=== PATIENT | female | born 1990 | race African-American/Black ===

== ENCOUNTER 2018-08-15 19:31 | Inpatient (IN) | payer OTHER ==
[2018-08-15] MEDS ORDERED: CLINDAMYCIN 900 MG PREMIX IVPB 900 MG/50 ML BAG IVPB ONE (20:30)
[2018-08-15] MEDS ORDERED: DEXTROSE 5%-LACTATED RINGERS 1,000 ML IV SCH (20:45)
--- NOTE | 2018-08-15 20:50 | HP ---
Past Medical History - Admission Chief Complaint: Uterine contractions History of Present Illness: 27yo @ 40.3wks by bedside sono BPD. Pt presented by ambulance, states [facility] at [facility]- but then on further questioning admits no care. Her REINIER she believes is either 07/21/18 or 07/31/18. She presents with one day of uterine contractions every 1-2 minutes. No VB. Denies LOF. +FM Reports history of 2 SVDs to 6# and 7# babies without complications. States these children were delivered at [facility]. History Source: Family Member Limitations to Obtaining History: Poor Historian - Past Medical History ...: 3 ...Para: 2 ...Term: 2 ...EDC by Dates: 07/21/18 ...EDC by Sono: 08/12/18 - Past Surgical History Hx Myomectomy: No Hx Transabdominal Cerclage: No - Social History History of Recent Travel: No Home Medications - Allergies Allergies/Adverse Reactions: Allergies Allergy/AdvReac Type Severity Reaction Status Date / Time Penicillins Allergy Intermediate Swelling Verified 08/15/18 20:39 amoxicillin Allergy Swelling Verified 08/15/18 20:40 Physical Exam - Maternity - Abdominal Exam/OB Number of Fetuses: Single Presentation: Vertex Contractions: Yes Regularity: Irregular Intensity: Mild Monitor Mode: External Category: II Accelerations: Uniform Decelerations: Variable - Vaginal Exam/OB Vaginal Bleediing: No Speculum Exam: No Dilatation (cm): 4 Effacement (%): 100 Presentation: Vertex/Position Station: -2 - Physical Exam Edema: No Assessment/Plan 27yo @ 40.3wks here in labor Admit to L&D NPO, IVFs Clinda for GBS unknown FHT with tachycardia and intermittent variable decels- will hydrate, reposition labs ordered, drug screen ordered Anticipate Deborah Darden MD
[2018-08-15 21:31] LABS: BASO % 0.1 % (0-2.0); EOS % 0.6 % (0-4.5); HEMATOCRIT 29.9 % (32.4-45.2); LYMPH % 16.4 % (8-40); MCH 28.5 pg (25.7-33.7); MCHC 33.5 g/dl (32.0-36.0); MEAN CELL VOLUME 85.1 fl (80-96); MEAN PLT VOLUME 7.7 fl (7.5-11.1); MONO % 6.6 % (3.8-10.2); NEUT % 76.3 % (42.8-82.8); PLATELET COUNT 364 K/MM3 (134-434); RBC 3.52 M/mm3 (3.60-5.2); RDW 15.4 % (11.6-15.6); WHITE BLOOD COUNT 5.7 K/mm3 (4.0-10.0)
[2018-08-15 21:33] LABS: URINE APPEARANCE SLCLOUDY; URINE BILIRUBIN NEGATIVE (<2.0 mg/dL); URINE COLOR YELLOW; URINE GLUCOSE (UA) NEGATIVE (NEGATIVE); URINE KETONE NEGATIVE (NEGATIVE); URINE LEUK ESTERASE TRACE (NEGATIVE); URINE NITRITE NEGATIVE (NEGATIVE); URINE PROTEIN NEGATIVE (NEGATIVE); URINE UROBILINOGEN 4.0 E.U/dl mg/dL (0.2-1.0)
[2018-08-15 21:38] LABS: EPI CELLS RARE /HPF (FEW); URINE MUCUS FEW
[2018-08-15 21:42] LABS: INR 0.91 (0.83-1.09); PROTHROMBIN TIME (PATIENT) 10.7 SEC (9.7-13.0)
--- NOTE | 2018-08-15 21:50 | PN ---
Progress Note, Labor Vaginal Exam #2 Labor Exam Date: 08/15/18 Labor Exam Time: 21:47 Heart Rate (range): Cat II Dilatation: 5-6 Effacement (%): 100 Amniotic Membrane Status: Ruptured Presentation: Vertex/Position Station: +1 Remarks: Pt complaining of rectal pressure. FHT with moderate variability and resolved tachycardia, however having intermittent variable decelerations Will reposition, continue fluids and oxygen Anticipate Deborah Darden MD
[2018-08-15 21:53] VITALS: BMI 20.3
[2018-08-15 21:56] LABS: ALBUMIN 2.4 g/dl (3.4-5.0); ALK PHOS 232 U/L (45-117); ANION GAP 8 MMOL/L (8-16); BILIRUBIN,TOTAL 0.4 mg/dL (0.2-1); BLOOD UREA NITROGEN 8 mg/dL (7-18); CALCIUM 8.1 mg/dL (8.5-10.1); CHLORIDE 107 mmol/L (98-107); CO2 23 mmol/L (21-32); COCAINE, UR NEGATIVE ng/ml (CUTOFF=300); CREATININE 0.4 mg/dL (0.55-1.3); GLUCOSE,RANDOM 77 mg/dL (74-106); METHADONE, UR NEGATIVE ng/ml (CUTOFF=300); OPIATES, URI NEGATIVE ng/ml (CUTOFF=300); PHENCYCLIDINE,URINE NEGATIVE ng/ml (CUTOFF=25); POTASSIUM 4.5 mmol/L (3.5-5.1); SGOT/AST 46 U/L (15-37); SGPT/ALT 17 U/L (13-61); SODIUM 138 mmol/L (136-145); TOT PROT 6.6 g/dl (6.4-8.2); URINE AMPHETAMINES NEGATIVE ng/ml (CUTOFF=500); URINE BARBITURATES NEGATIVE ng/ml (CUTOFF=200); URINE BENZODIAZEPINES NEGATIVE ng/ml (CUTOFF=200)
--- NOTE | 2018-08-15 23:23 | PN ---
Progress Note, Labor Vaginal Exam #2 Labor Exam Time: 23:22 Heart Rate (range): Cat II Dilatation: 6 Effacement (%): 100 Amniotic Membrane Status: Ruptured Presentation: Vertex/Position Station: +1 Remarks: Pt reporting rectal pressure Exam not much changed since previous exam FHT with intermittent variables, but moderate variability Anticipate Deborah Darden MD
[2018-08-15] MEDS ORDERED: OXYTOCIN 30 UNITS in 0.9% NS 30 UNIT/500 ML INFUS.BAG IVPB ONE (23:33)
[2018-08-15] MEDS ORDERED: OXYTOCIN 30 UNITS in 0.9% NS 30 UNIT/500 ML INFUS.BAG IVPB SCH (23:45)
[2018-08-16] MEDS ORDERED: OXYTOCIN 20 UNITS in 0.9% NS 20 UNIT/1,000 ML INFUS.BAG IV ONE (00:39)
[2018-08-16] MEDS ORDERED: METHYLERGONOVINE MALEATE 0.2 MG/1 ML AMP IM PRN (00:59)
[2018-08-16] MEDS ORDERED: BENZOCAINE 20% 57 GM BOTTLE TP PRN (00:59)
[2018-08-16] MEDS ORDERED: ACETAMINOPHEN 325 MG TABLET (FP) PO PRN (00:59)
[2018-08-16] MEDS ORDERED: BENZOCAINE 28 GM HEMORRHOIDAL OINTMENT TP PRN (00:59)
[2018-08-16] MEDS ORDERED: WITCH HAZEL 50% (TUCKS) 40 PAD/JAR PAD TP PRN (00:59)
[2018-08-16] MEDS ORDERED: IBUPROFEN 600 MG TABLET (FP) PO PRN (00:59)
--- NOTE | 2018-08-16 00:59 | PN ---
Delivery - Delivery Type of Anesthesia: None Episiotomy/Laceration: Midline, 1st degree EBL (cc): 250 Delivery, Single - Stages of Labor Placenta: Yes: Spontaneous - Condition of Infant Infant Gender: Male Position: Right, OA - [place] Feeding Plan Initial Plan: Elected not to breastfeed exclusively throughout hospitalization Remarks - Remarks Remarks: of VMI from ESTELA position over intact perineum. Uncertain gestational age. No anesthesia. Spontaneous delivery of anterior shoulder. Cord clamped and cut. handed off. Spontaneous delivery of intact placenta with 3VC. Perineum inspected, first degree midline laceration noted. Repaired after 4cc of 1% lidocaine injected, with 2-0 chromic. Fundus firm. EBL 250ml. Mother and baby doing well. Deborah Darden MD
[2018-08-16] MEDS ORDERED: OXYTOCIN 20 UNITS in 0.9% NS 20 UNIT/1,000 ML INFUS.BAG IV SCH (01:00)
[2018-08-16] MEDS: CLINDAMYCIN 600MG PREMIX IVPB 600 MG/50 ML BAG IVPB SCH ×2 (03:46→03:47)
[2018-08-16] MEDS: FERROUS SO4 325 MG TABLET (FP) PO SCH ×2 (08:25→16:56)
[2018-08-16] MEDS: PRENATAL VITAMINS W/ FOLIC ACID TABLET (FP) PO SCH (09:39)
--- NOTE | 2018-08-17 07:25 | PN ---
Post Progress Note Type of Delivery: Vital Signs: Vital Signs Temperature 97.9 F 08/16/18 21:00 Pulse Rate 93 H 08/16/18 21:00 Respiratory Rate 20 08/16/18 21:00 Blood Pressure 114/67 08/16/18 21:00 O2 Sat by Pulse Oximetry (%) Uterus: Yes: Fundus below umbilicus Incision: Yes: Dressing dry and intact. No: [place] intact, Sutures intact, Redness, Oozing, Other Abdomen/GI: Yes: Abdomen soft Lochia: Yes: Rubra Lochia, amount: Small Extremities: Yes: Calves non-tender Perineum: Yes: Intact Activity: Ambulating - Labs Labs: CBC WBC 5.7 K/mm3 (4.0-10.0) 08/15/18 20:35 RBC 3.52 M/mm3 (3.60-5.2) L 08/15/18 20:35 Hgb 10.0 GM/dL (10.7-15.3) L 08/15/18 20:35 Hct 29.9 % (32.4-45.2) L 08/15/18 20:35 MCV 85.1 fl (80-96) 08/15/18 20:35 MCH 28.5 pg (25.7-33.7) 08/15/18 20:35 MCHC 33.5 g/dl (32.0-36.0) 08/15/18 20:35 RDW 15.4 % (11.6-15.6) 08/15/18 20:35 Plt Count 364 K/MM3 (134-434) 08/15/18 20:35 MPV 7.7 fl (7.5-11.1) 08/15/18 20:35 Absolute Neuts (auto) 4.4 K/mm3 (1.5-8.0) 08/15/18 20:35 Neutrophils % 76.3 % (42.8-82.8) 08/15/18 20:35 Lymphocytes % 16.4 % (8-40) 08/15/18 20:35 Monocytes % 6.6 % (3.8-10.2) 08/15/18 20:35 Eosinophils % 0.6 % (0-4.5) 08/15/18 20:35 Basophils % 0.1 % (0-2.0) 08/15/18 20:35 Nucleated RBC % 0 % (0-0) 08/15/18 20:35 Assessment/Plan 27yo s/p , PPD#1 Routine PP care s/p SW consult given lack of PNC Labs reviewed Anticipate d/c to home tomorrow Deborah Darden MD
[2018-08-17 07:29] LABS: BASO % 0.3 % (0-2.0); HEMATOCRIT 27.4 % (32.4-45.2); HEMOGLOBIN 8.8 GM/dL (10.7-15.3); LYMPH % 27.8 % (8-40); MCH 27.7 pg (25.7-33.7); MCHC 32.1 g/dl (32.0-36.0); MEAN CELL VOLUME 86.3 fl (80-96); MEAN PLT VOLUME 7.3 fl (7.5-11.1); MONO % 6.8 % (3.8-10.2); NEUT % 64.1 % (42.8-82.8); PLATELET COUNT 291 K/MM3 (134-434); RBC 3.17 M/mm3 (3.60-5.2); RDW 15.7 % (11.6-15.6); WHITE BLOOD COUNT 6.2 K/mm3 (4.0-10.0)
[2018-08-17] MEDS: FERROUS SO4 325 MG TABLET (FP) PO SCH ×2 (08:26→16:58)
[2018-08-17] MEDS: PRENATAL VITAMINS W/ FOLIC ACID TABLET (FP) PO SCH (09:35)
[2018-08-17 13:14] LABS: HBsAG SCREEN Negative (Negative)
[2018-08-17 18:13] LABS: RUBELLA IgG ANTIBODY 1.03 index (Immune >0.99)
[2018-08-17] MEDS ORDERED: SENNOSIDES/DOCUSATE COMBO (SENNA PLUS) TABLET (UD) PO PRN (22:00)
[2018-08-18] MEDS: FERROUS SO4 325 MG TABLET (FP) PO SCH (09:04)
[2018-08-18] MEDS: PRENATAL VITAMINS W/ FOLIC ACID TABLET (FP) PO SCH (09:05)
--- NOTE | 2018-08-18 09:58 | DS ---
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 Vital Signs: Vital Signs Temperature 98.3 F 08/17/18 20:09 Pulse Rate 83 08/17/18 20:09 Respiratory Rate 20 08/17/18 20:09 Blood Pressure 114/67 08/17/18 20:09 O2 Sat by Pulse Oximetry (%) Constitutional: Yes: Well Nourished Eyes: Yes: Conjunctiva Clear HENT: Yes: Atraumatic Neck: Yes: Supple Cardiovascular: Yes: Regular Rate and Rhythm Respiratory: Yes: Regular Gastrointestinal: Yes: Normal Bowel Sounds Pelvis: Yes: WNL External Genitalia: Yes: Normal Vaginal Exam: Yes: Normal Cervix: Yes: Normal Uterus: Yes: Firm ....Post : Yes: Uterus firm, Moderate lochia serosa Breast(s): Yes: WNL Musculoskeletal: Yes: WNL Extremities: Yes: WNL Neurological: Yes: Alert, Oriented ...Motor Strength: WNL Psychiatric: Yes: Alert, Oriented Labs: CBC, BMP 08/17/18 06:30 08/15/18 20:35 Delivery - Delivery Type of Anesthesia: None Episiotomy/Laceration: Midline, 1st degree EBL (cc): 250 Delivery, Single - Stages of Labor Date 1st Stage Initiatied: 08/15/18 Time 1st Stage Initiated: 13:00 Date 2nd Stage Initiated: 08/16/18 Time 2nd Stage Initiated: 00:25 Date of Delivery: 08/16/18 Time of Delivery: 00:40 Time Placenta Delivered: 00:45 Placenta: Yes: Spontaneous - 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 5mins. - 1 Minute Total Score: 9 5 Minutes Total Score: 9 - Feeding Plan Initial Plan: Elected not to breastfeed exclusively throughout hospitalization Discharge Summary Reason For Visit: LABOR Current Active Problems Status post normal vaginal delivery (Acute) Procedures: Principal: Normal spontaneous vaginal delivery Hospital Course: Routine care Condition: Good - Instructions Referrals: Deborah Darden MD [Staff Physician] - Disposition: HOME - Home Medications Comprehensive Discharge Medication List: Ambulatory Orders NK [No Known Home Medication] 08/15/18
[2018-08-18 10:48] VITALS: BP 121/78; PULSE 76; TEMP 98.4
== END 2018-08-18 13:35 | disposition home or self-care (01) | DRG 560 ==
LOC: JLDR 19:31 → J3W 08-16 03:10
PROVIDERS: ADMIT Obstetrics & Gynecology; ATTEND Obstetrics & Gynecology
PROC: 0HQ9XZZ Repair Perineum Skin, External Approach (ICD-10-PCS; principal; 2018-08-16)
PROC: 10E0XZZ Delivery of Products of Conception, External Approach (ICD-10-PCS; 2018-08-16)
DX: O48.0 Post-term pregnancy (principal); Z37.0 Single live birth; O70.0 First degree perineal laceration during delivery; Z3A.40 40 weeks gestation of pregnancy
CPT/HCPCS: 36415; 59409; 80053; 80307; 81003; 81015; 85025; 85610; 85730; 86593; 86762; 86850; 86900; 86901; 87340; 87389

== ENCOUNTER 2022-12-14 02:15 | Inpatient (IN) | payer OTHER ==
[2022-12-14] MEDS ORDERED: METHYLERGONOVINE MALEATE 0.2 MG/1 ML AMP IM ONE (02:45)
[2022-12-14 03:55] LABS: BASO % 0.4 % (0-2.0); EOS % 0.4 % (0-4.5); EPI CELLS 16 /uL (0-25.1); HEMATOCRIT 32.3 % (32.4-45.2); HEMOGLOBIN 10.8 GM/dL (10.7-15.3); HYALINE CASTS 5 /uL (0-3.1); LYMPH % 13.9 % (8-40); MCH 27.5 pg (25.7-33.7); MCHC 33.3 g/dl (32.0-36.0); MEAN CELL VOLUME 82.3 fl (80-96); MEAN PLT VOLUME 7.2 fl (7.5-11.1); NEUT % 81.3 % (42.8-82.8); PLATELET COUNT 546 10^3/uL (134-434); RBC 3.93 M/mm3 (3.60-5.2); RDW 17.2 % (11.6-15.6); URINE APPEARANCE TURBID; URINE BILIRUBIN 1+ (NEGATIVE); URINE COLOR RED; URINE GLUCOSE (UA) NEGATIVE (NEGATIVE); URINE KETONE NEGATIVE (NEGATIVE); URINE LEUK ESTERASE 2+ (NEGATIVE); URINE NITRITE POSITIVE (NEGATIVE); URINE PROTEIN 2+ (NEGATIVE); URINE RBC 48583 /uL (0-23.9); URINE WBC 30 /uL (0-25.8); WHITE BLOOD COUNT 6.9 K/mm3 (4.0-10.0)
[2022-12-14 04:01] LABS: PHENCYCLIDINE,URINE NEGATIVE (NEGATIVE)
[2022-12-14 04:02] LABS: COCAINE, UR NEGATIVE (NEGATIVE); OPIATES, URI NEGATIVE (NEGATIVE); URINE BARBITURATES NEGATIVE (NEGATIVE); URINE BENZODIAZEPINES NEGATIVE (NEGATIVE)
[2022-12-14 04:03] LABS: INR 0.96 (0.83-1.09); PROTHROMBIN TIME (PATIENT) 11.1 SEC (9.7-13.0)
[2022-12-14] MEDS ORDERED: IBUPROFEN 600 MG TABLET (FP) PO PRN (04:07)
[2022-12-14] MEDS ORDERED: BENZOCAINE 20% 57 GM BOTTLE TP PRN (04:10)
[2022-12-14] MEDS ORDERED: BENZOCAINE 28 GM HEMORRHOIDAL OINTMENT TP PRN (04:10)
[2022-12-14] MEDS ORDERED: ACETAMINOPHEN 325 MG TABLET (FP) PO PRN (04:10)
[2022-12-14] MEDS ORDERED: WITCH HAZEL 50% (TUCKS) 40 PAD/JAR PAD TP PRN (04:10)
[2022-12-14] MEDS ORDERED: BISACODYL 10 MG SUPP.RECT RC PRN (04:10)
[2022-12-14 04:13] LABS: BLOOD UREA NITROGEN 10.1 mg/dL (7-18); CALCIUM 8.9 mg/dL (8.5-10.1)
[2022-12-14] MEDS ORDERED: OXYTOCIN 20 UNITS in 0.9% NS 20 UNIT/1,000 ML INFUS.BAG IV ONE (04:13)
[2022-12-14 04:14] LABS: ALBUMIN 2.4 g/dl (3.4-5.0)
[2022-12-14] MEDS ORDERED: OXYTOCIN 20 UNITS in 0.9% NS 20 UNIT/1,000 ML INFUS.BAG IV SCH (04:15)
[2022-12-14 04:16] LABS: CREATININE 0.4 mg/dL (0.55-1.3)
[2022-12-14 04:18] LABS: BILIRUBIN,TOTAL 0.2 mg/dL (0.2-1); TOT PROT 7.1 g/dl (6.4-8.2)
[2022-12-14 04:33] LABS: METHADONE, UR NEGATIVE (NEGATIVE); URINE AMPHETAMINES NEGATIVE (NEGATIVE)
[2022-12-14 04:41] LABS: HEPATITIS B SURFACE AG MATERN NON-REACTIVE (NONREACTIVE); SYPHILIS W/ RPR CONF NON-REACTIVE (NONREACTIVE)
[2022-12-14 07:21] LABS: HIV INTERPRETATION NEGATIVE (NEGATIVE)
[2022-12-14] MEDS: DOCUSATE SODIUM 100 MG CAPSULE (FP) PO SCH (09:44)
[2022-12-14] MEDS: PRENATAL VITAMINS W/ FOLIC ACID TABLET (FP) PO SCH (09:44)
[2022-12-15 09:27] LABS: BASO % 0.2 % (0-2.0); EOS % 0.9 % (0-4.5); HEMATOCRIT 24.1 % (32.4-45.2); LYMPH % 16.1 % (8-40); MCH 27.6 pg (25.7-33.7); MCHC 33.2 g/dl (32.0-36.0); MEAN PLT VOLUME 7.5 fl (7.5-11.1); MONO % 4.5 % (3.8-10.2); NEUT % 78.3 % (42.8-82.8); PLATELET COUNT 394 10^3/uL (134-434); RDW 17.3 % (11.6-15.6); WHITE BLOOD COUNT 6.5 K/mm3 (4.0-10.0)
[2022-12-15] MEDS: DOCUSATE SODIUM 100 MG CAPSULE (FP) PO SCH (09:51)
[2022-12-15] MEDS: PRENATAL VITAMINS W/ FOLIC ACID TABLET (FP) PO SCH (09:51)
[2022-12-15 10:23] VITALS: BP 89/52; PULSE 105; RESP 18; TEMP 98.8
== END 2022-12-15 12:40 | disposition home or self-care (01) | DRG 560 ==
LOC: JLDR 02:15 → J3W 04:50
PROVIDERS: ADMIT Student in an Organized Health Care Education/Training Program; ATTEND Student in an Organized Health Care Education/Training Program
PROC: 10E0XZZ Delivery of Products of Conception, External Approach (ICD-10-PCS; principal; 2022-12-14)
DX: Z39.0 Encounter for care and examination of mother immediately after delivery (principal); O60.14X0 Preterm labor third trimester with preterm delivery third trimester, not applicable or unspecified; O73.0 Retained placenta without hemorrhage; O90.81 Anemia of the puerperium; Z3A.35 35 weeks gestation of pregnancy; Z37.0 Single live birth
CPT/HCPCS: 36415; 80053; 80307; 81003; 85025; 85610; 85730; 86780; 86850; 86900; 86901; 87086; 87340; 87389; 88307-TC; C9803-CS; U0003; U0005